=== PATIENT | female | born 1965 | race Caucasian/White ===

== ENCOUNTER 2019-08-22 19:12 | Emergency (ER) | payer MEDICAID, OTHER ==
[2019-08-22 21:57] VITALS: BP 158/92
[2019-08-22] MEDS ORDERED: KETOROLAC TROMETH 60MG/2ML VIAL IM ONE (22:45)
== END 2019-08-22 23:48 | disposition home or self-care (01) ==
LOC: ER 19:12
DX: M54.6 Pain in thoracic spine (principal); W11.XXXA Fall on and from ladder, initial encounter; Y93.89 Activity, other specified; Y92.89 Other specified places as the place of occurrence of the external cause; Y99.8 Other external cause status
CPT/HCPCS: 72128; 96372; 99284; J1885

== ENCOUNTER 2019-11-22 13:23 | Emergency (ER) | payer MEDICAID ==
[~2019-11-22] VITALS: Ht 165.1 cm; Wt 83.9 kg
[2019-11-22 13:32] VITALS: BP 168/92
== END 2019-11-22 15:06 | disposition home or self-care (01) ==
LOC: ER 13:23
DX: G44.209 Tension-type headache, unspecified, not intractable (principal); R41.82 Altered mental status, unspecified; J45.909 Unspecified asthma, uncomplicated; I10 Essential (primary) hypertension
CPT/HCPCS: 70450

== ENCOUNTER 2020-02-13 14:02 | Emergency (ER) | payer MEDICAID ==
[~2020-02-13] VITALS: Ht 165.1 cm; Wt 73.5 kg
[2020-02-13 15:13] VITALS: BP 167/94
== END 2020-02-13 16:25 | disposition home or self-care (01) ==
LOC: ER 14:02
DX: R07.81 Pleurodynia (principal); I10 Essential (primary) hypertension; J45.909 Unspecified asthma, uncomplicated; F32.9 Major depressive disorder, single episode, unspecified
CPT/HCPCS: 71046

== ENCOUNTER 2023-01-30 19:29 | Emergency (ER) | payer MEDICAID ==
[~2023-01-30] VITALS: Ht 162.6 cm; Wt 90.9 kg
[~2023-01-30 19:29] MED LIST: ACET-1079 PO; ACET500T58 PO; BACDST PO; CEPH500T PO; LISI10TA34 PO; ZOFR4T PO
[2023-01-30 20:24] LABS: Basophils # (auto) 0 10 ^3/uL (0-0.2); Basophils % (auto) 0.9 % (0.0-2.0); Eosinophils # (auto) 0.1 10 ^3/uL (0-0.8); Eosinophils % (auto) 1.7 % (0.0-7.0); Hematocrit 40.3 % (36.0-46.0); Hemoglobin 13.3 g/dL (12.2-16.2); Lymphocytes # (auto) 2.4 10 ^3/uL (0.4-5.4); Lymphocytes % (auto) 43.1 % (10.0-50.0); Mean Corpuscular Hemoglobin 28.8 pg (28.0-32.0); Mean Corpuscular Volume 87.4 fL (80.0-100.0); Monocytes # (auto) 0.5 10 ^3/uL (0-1.3); Monocytes % (auto) 8.4 % (0.0-12.0); Neutrophils # (auto) 2.6 10 ^3/uL (1.6-8.6); Neutrophils % (auto) 45.9 % (37.0-80.0); Nucleated Red Blood Cells % 0.1 %; Red Blood Cells 4.61 10^6/uL (4.0-5.20); Red Cell Distribution Width 16.3 % (11.8-14.3); White Blood Cell 5.6 10^3/uL (4.4-10.8)
[2023-01-30 20:30] LABS: Albumin 3.9 g/dL (3.4-5.0); Calcium 9.3 mg/dL (8.5-10.1); Magnesium 2.6 mg/dL (1.6-2.6)
[2023-01-30 20:34] LABS: BUN/Creatinine Ratio 11.7 (10.0-20.0); Bilirubin, Total 0.2 mg/dL (0.2-1.0); Total Protein 7.3 g/dL (6.4-8.2)
[2023-01-30] MEDS ORDERED: ONDANSETRON ODT 4 MG TAB PO ONE (20:45)
[2023-01-30] MEDS ORDERED: HYDROcodone-ACET 10/325MG TAB PO ONE (20:45)
[2023-01-30 23:11] LABS: Urine Bacteria MOD /hpf (None Seen); Urine Mucus FEW (None Seen); Urine WBC 3 /hpf (0 - 5)
[2023-01-30 23:12] LABS: Urine Clarity CLEAR (Clear); Urine Color Yellow (Yellow)
[2023-01-30 23:13] LABS: Urine Blood TRACE /uL (Negative); Urine Protein, UAD TRACE (Negative); Urine Urobilinogen Normal (Negative)
[2023-01-30] MEDS ORDERED: IBUP-1455 PO (23:48)
[2023-01-30] MEDS ORDERED: HYDR-4902 PO (23:48)
[2023-01-30] MEDS ORDERED: ZOFR4T PO (23:48)
[2023-01-31 00:20] VITALS: BP 151/87; PULSE 77; RESP 20; TEMP 98.1; O2SAT 96
== END 2023-01-31 00:22 | disposition home or self-care (01) ==
LOC: EDBD 19:29 → ER 19:29
DX: K82.0 Obstruction of gallbladder (principal); J45.909 Unspecified asthma, uncomplicated; I10 Essential (primary) hypertension; E66.01 Morbid (severe) obesity due to excess calories; Z68.34 Body mass index [BMI] 34.0-34.9, adult
CPT/HCPCS: 36415; 74176; 80053; 81001; 83690; 83735; 85025; 93005; 99284; Q0162

== ENCOUNTER 2024-11-02 16:52 | Emergency (ER) | payer MEDICAID ==
[~2024-11-02] VITALS: Ht 170.2 cm; Wt 104.5 kg
[~2024-11-02 16:52] MED LIST changes: +HYDR-4902 PO; +IBUP-1455 PO
--- NOTE | 2024-11-02 17:58 | ED.PDOC ---
History of Present Illness HPI Comments This patient is a 58-year-old morbidly obese female who arrives the ED today via EMS for evaluation of right knee pain concerns status post ground level fall stepping out of a shower proximally 1/2 hour prior to arrival. Patient states she slipped something in the shower and landed directly on the right knee. Patient states she is unable to ambulate. Patient arrives with a box knee splint having received fentanyl in route. Patient was comfortable at time of evaluation. Patient denies any head trauma or blood loss. Chief Complaint: Lower Extremity Time Seen by MD: 17:35 Primary Care Provider: MEKA Reviewed Notes: Nurses Notes, Acetone Button Paster Notes, Medications, Allergies Allergies: Coded Allergies: NO KNOWN ALLERGIES (Unverified , 11/22/19) Home Meds Active Scripts Ondansetron Odt 4MG Tab (ZOFRAN PO) 4 Mg Tb, 4 MG PO Q6HP PRN, #20 TAB ODT TAB-DISSOLVE IN MOUTH, THEN SWALLOW Prov:LEVY HENDRIX PAC 01/30/23 Hydrocodone-Acetaminophen (Hydrocodone Bitartrate/AC 5-325 mg) 1 Tab Tab, 1 TAB PO Q6HP PRN, #20 TAB Prov:LEVY HENDRIX PAC 01/30/23 Ibuprofen Micronized (Ibuprofen) 800 Mg Tab, 800 MG PO Q8HP PRN, #20 TAB Prov:LEVY HENDRIX PAC 01/30/23 Lisinopril (Lisinopril) 10 Mg Tab, 10 MG PO DAILY, #30 TAB Prov:LEVY HENDRIX PAC 01/09/23 Sulfamethoxazole W/Trimethopri (Bactrim Ds Tablet) 1 Tab Tb, 1 TAB PO BID for 7 Days, #14 TAB Prov:LEVY HENDRIX PAC 01/09/23 Ondansetron Odt 4MG Tab (ZOFRAN PO) 4 Mg Tb, 4 MG PO Q6HP PRN, #20 TAB ODT TAB-DISSOLVE IN MOUTH, THEN SWALLOW Prov:LEVY HENDRIX PAC 01/09/23 Acetaminophen (Acetaminophen) 500 Mg Tab, 500 MG PO Q4HP PRN, #30 TAB Prov:LEVY HENDRIX PAC 01/09/23 Acetaminophen (Tylenol) 325 Mg Tb, 325 MG PO Q4HPRN PRN, #30 TAB 0 Refills Take 1-2 caps po q4h prn for pain/fever (Do not exceed 3,000mg of acetaminophen in 24 hours) Prov:RENETTA CHIANG [facility] 01/06/23 Cephalexin Monohydrate (Cephalexin) 500 Mg Tab, 1 TAB PO QID for 7 Days, #28 TAB 0 Refills Prov:RENETTA CHIANG [facility] 01/06/23 Information Source: Patient, Emergency Med Personnel Mode of Arrival: EMS Severity: Moderate Timing: Minutes Duration: Since onset, Minutes Prehospital treatment: None Past Medical History PAST MEDICAL HISTORY: Anxiety, Asthma, Depression, HTN Surgical History: Tonsillectomy GLOBAL CATEGORY MANAGER History: No Pertinent GLOBAL CATEGORY MANAGER History Family History Family History: Reviewed,noncontributory to illness, Unknown Social History Smoker: Non-Smoker Alcohol: Denies ETOH Use Drugs: Denies Drug Use Lives In: Home Constitutional: reports: others (Right knee deformity/pain); denies: chills, diaphoresis, fatigue, fever, malaise, sweats, weakness EENTM: denies: blurred vision, double vision, ear bleeding, ear discharge, ear drainage, ear pain, ear ringing, eye pain, eye redness, hearing loss, mouth pain, mouth swelling, nasal discharge, nose bleeding, nose congestion, nose pain, photophobia, tearing, throat pain, throat swelling, voice changes, others Respiratory: denies: cough, hemoptysis, orthopnea, SOB at rest, shortness of breath, SOB with excertion, stridor, wheezing, others Cardiovascular: denies: chest pain, dizzy spells, diaphoresis, Dyspnea on exertion, edema, irregular heart beat, left arm pain, lightheadedness, palpitations, PND, syncope, others Gastrointestinal: denies: abdomen distended, abdominal pain, blood streaked bowels, constipated, diarrhea, dysphagia, difficulty swallowing, hematemesis, melena, nausea, poor appetite, poor fluid intake, rectal bleeding, rectal pain, vomiting, others Genitourinary: denies: abnormal vagina bleeding, burning, dyspareunia, dysuria, flank pain, frequency, hematuria, incontinence, pain, , vagina discharge, urgency, others Neurological: denies: dizziness, fainting, headache, left sided numbness, left sided weakness, numbness, paresthesia, pre-existing deficit, right sided numbness, right sided weakness, seizure, speech problems, tingling, tremors, weakness, others Musculoskeletal: reports: others (Right knee pain); denies: back pain, gout, joint pain, joint swelling, muscle pain, muscle stiffness, neck pain Integumetry: denies: bruises, change in color, change in hair/nails, dryness, laceration, lesions, lumps, rash, wounds, others Endocrine: denies: excessive hunger, excessive sweating, excessive thirst, excessive urination, flushing, intolerance to cold, intolerance to heat, unexplained weight gain, unexplained weight loss, others Psychiatric: denies: anxiety, bipolar disorder, depression, hopeless, panic disorder, schizophrenia, sleepless, suicidal, others All Other Systems: Reviewed and Negative Physical Exam General Appearance: Moderate Distress ( [id number] distress due to right knee pain concerns.), Obese HEENT: Normal ENT Inspection, Pharynx Normal, TMs Normal Neck: Full Range of Motion, Non-Tender, Normal, Normal Inspection Respiratory: Chest Non-Tender, Lungs Clear, No Accessory Muscle Use, No Respiratory Distress, Normal Breath Sounds Cardiovascular: No Edema, No JVD, No Murmur, No Gallop, Normal Peripheral Pulses, Regular Rate/Rhythm Breast Exam: Deferred Gastrointestinal: No Organomegaly, Non Tender, No Pulsatile Mass, Normal Bowel Sounds, Soft Genitalia: Deferred Pelvic: Deferred Rectal: Deferred Extremities: Other ( Patient was in a knee brace at time of evaluation. Pat ient displays multiple patches of the abrasions with localized edema. No ecchymosis appreciated. No erythema. Tender to palpation throughout anterior aspect. Distal neurovascular intact.) Musculoskeletal : Apperance: Normal Neurologic: Alert, No Motor Deficits, Normal Affect, Normal Mood, No Sensory Deficits Cerebellar Function: Normal Reflexes: Normal Skin: Dry, Normal Color, Warm Lymphatic: No Adenopathy Was a procedure done? Was a procedure done?: No Differential Dx Considerations may include: Knee fracture, knee contusion, fall X-Ray, Labs, Meds, VS Vital Signs Date Time Temp Pulse Resp B/P (MAP) Pulse Ox O2 Delivery O2 Flow Rate FiO2 11/02/24 18:08 101 20 95 Room Air* 0 21 11/02/24 18:08 98.4 101 20 150/87 (108) 95 98.4 11/02/24 17:00 98.3 108 12 126/76 (93) 98 98.3 Current Medications Medications (Trade) Dose Ordered Sig/Obdulia Route Start Time Stop Time Status Last Admin Acetaminophen/ Hydrocodone Bitart ([place] 10/325MG Tab) 1 tab ONCE ONCE PO 11/02/24 18:15 11/02/24 18:16 DC 11/02/24 18:18 X-Ray, Labs, Meds, VS Comment All studies performed the ED were evaluated by me personally. x-rays studies confirmed avulsion fracture of the distal right patella. No joint space narrowing was noted. Patient will be provided with a knee immobilizer and crutches at discharge. Advised patient utilize pain medication as needed, and follow up with the primary care provider in five days for re-evaluation. If the patient can not follow up with the primary care, contact this facility and talk to our orthopedic group. Time of 1ST Reevaluation: 18:36 Reevaluation 1ST: Improved Consultation: PCP, Other ( Orthopedist) Patient Education/Counseling: Diagnosis, Treatment, Prognosis Family Education/Counseling: Diagnosis, Treatment, No Family Present Departure 1 Departure Time of Disposition: 18:37 Impression: Primary Impression: Patellar sleeve fracture of right knee Disposition: HOME / SELF CARE / HOMELESS Condition: Stable Additional Instructions: Advised patient utilize pain medication as needed. Patient should contact her primary care provider in approximately five days for re-evaluation discussions related to long-term management. If the patient can not reach her primary care, she should contact this facility at [phone] ask for our orthopedic group that is managed by Dr. Perez for evaluation of her wound/fracture. e-Prescriptions Hydrocodone-Acetaminophen (Hydrocodone Bitartrate/AC 10-325 mg) 1 Tab Tab 1 TAB PO Q8HP PRN, #20 TAB Prov: LEVY HENDRIX PAC 11/02/24 Ibuprofen Micronized (Ibuprofen) 800 Mg Tab 800 MG PO Q8HP PRN, #20 TAB Prov: LEVY HENDRIX PAC 11/02/24 Discharged With: Self, Friend Critical Care Note Critical Care Time?: No Stability Stability form required: No Heart Score Heart Score: Heart Score Response (Comments) Value History N/A 0 EKG N/A 0 Age N/A 0 Risk Factors N/A 0 Troponin N/A 0 Total 0 I personally scribed for LEVY HENDRIX ([email or web address]) on 11/02/24 at 17:58. Electronically submitted by Star Valadez ([email or web address]). LEVY HENDRIX PAC November 02, 2024 17:58
[2024-11-02 18:08] VITALS: PULSE 101; RESP 20; O2SAT 95
--- NOTE | 2024-11-02 18:13 | DVH ---
EXAM: XY R KNEE 3V XRAY HISTORY: Fall /trauma COMPARISON: None TECHNIQUE: 3 views of the right knee were performed. FINDINGS: Avulsion fracture of the distal right patella.. No significant joint space narrowing. No evidence o f significant joint effusion. IMPRESSION: 1. Avulsion Fracture of the distal right patella with diastasis
[2024-11-02] MEDS: HYDROcodone-ACET 10/325MG TAB PO ONE (18:18)
[2024-11-02] MEDS ORDERED: HYDR-4798 PO (18:39)
[2024-11-02 19:30] VITALS: BP 107/90; PULSE 106; RESP 14; TEMP 98.6; O2SAT 99
== END 2024-11-02 20:40 | disposition home or self-care (01) ==
LOC: EDBD 16:52 → ER 16:57
DX: S82.091A Other fracture of right patella, initial encounter for closed fracture (principal); I10 Essential (primary) hypertension; F32.A Depression, unspecified; F41.9 Anxiety disorder, unspecified; J45.909 Unspecified asthma, uncomplicated; E66.01 Morbid (severe) obesity due to excess calories; Z68.36 Body mass index [BMI] 36.0-36.9, adult; Z79.899 Other long term (current) drug therapy; Z90.89 Acquired absence of other organs; W18.2XXA Fall in (into) shower or empty bathtub, initial encounter; Y93.89 Activity, other specified; Y92.098 Other place in other non-institutional residence as the place of occurrence of the external cause; Y99.8 Other external cause status
CPT/HCPCS: 29505; 73562

== ENCOUNTER 2024-11-22 06:05 | Inpatient (IN) | payer MEDICAID, OTHER ==
[~2024-11-22] VITALS: Ht 165.1 cm; Wt 102.0 kg
[~2024-11-22 06:05] MED LIST changes: +AML5T GT; +ATOR20TA50 PO; -BACDST PO; +BUPR-133 PO; -CEPH500T PO; +CHOL20007 OR; +HYDR-4798 PO; +LAMO200T34 PO; -LISI10TA34 PO; +LORA-622 PO; +LOSA-533 PO; +MONT-8 OR; +QUET300T14 PO; -ZOFR4T PO
[2024-11-22] MEDS: ceFAZolin 2 GM/D5W50ml 50 ML IV ONE (06:37)
[2024-11-22] MEDS: ROPIVACAINE 0.5% (5MG/ML) 20ML AMPULE IJ ONE (07:01)
[2024-11-22] MEDS ORDERED: HYDROmorphone HCL 2 MG/ML VL/or syr ONE (07:06)
[2024-11-22] MEDS ORDERED: MIDAZOLAM HCL 2MG/2ML 2ml VIAL (1mg/ml) ONE (07:06)
[2024-11-22] MEDS ORDERED: fentaNYL CITRATE 100 MCG/2 ML VL ONE (07:06)
[2024-11-22] MEDS ORDERED: ONDANSETRON HCL 4 MG/2 ML VIAL ONE (07:07)
[2024-11-22] MEDS: BUPIVACAINE 0.25% INJ 50ML VIAL ONE (07:07)
[2024-11-22] MEDS ORDERED: DexAMETHasone SOD PHOS 10MG/1ML VIAL INJ ONE (07:07)
[2024-11-22] MEDS ORDERED: LIDOCAINE 2% (LOCAL ANESTH.) PF 5ml SDV ONE (07:07)
[2024-11-22] MEDS ORDERED: KETOROLAC TROMETH 30 MG/ML 1ML VIAL ONE (07:07)
[2024-11-22] MEDS ORDERED: ePHEDrine SULFATE 50 MG/ML AMP ONE (07:07)
[2024-11-22] MEDS ORDERED: KETAMINE 50mg/ML 1ml syringe ONE (07:08)
[2024-11-22] MEDS ORDERED: GLYCOPYRROLATE 0.2 MG/ML 1ML VIAL ONE (07:08)
[2024-11-22] MEDS ORDERED: PROPOFOL 10 MG/ML 20 ML IV ONE (07:08)
[2024-11-22] MEDS ORDERED: CEPH500C PO (07:10)
[2024-11-22] MEDS ORDERED: HYDR-4072 PO (07:10)
--- NOTE | 2024-11-22 07:41 | DVHHP2 ---
History Allergies: Coded Allergies: NO KNOWN ALLERGIES (Unverified , 11/22/19) Chief Complaint: Right knee pain, inabilty to extend leg Present Illness(Onset/Duration Mechanical fall in bathroom yesterday, 11/21/24, hyperflextion of RIGHT leg, no hitting head, no altered mental status before or after fall. Inability to bear weight RIGHT LE after fall, with inability to extend right leg. Past Surgical History tonsillectomy, cholecystectomy Medications none declared Physical Exam Skin intact Chest and Lungs CTA B Heart RRR neg MRG Abdomen NBS ND NT Extremities Right Knee moderate swelling NVI skin intact, palpable defect inferior patella, inabilty to extend leg through knee Vital Signs Vital Signs Date Time Temp Pulse Resp B/P (MAP) Pulse Ox O2 Delivery O2 Flow Rate FiO2 11/22/24 06:23 97.3 90 20 131/87 (102) 94 97.3 Other imaging 11/21/24 right knee 2V, patella fracture, inferior pole, displaced, minimal articular surface Impressions/Description Right knee, patellar fracture, displaced, inferior pole patella Plan surgery ORIF patella fracture JENNA PATRICIA MD Nov 22, 2024 07:41
[2024-11-22 08:35] VITALS: O2SAT 92
--- NOTE | 2024-11-22 08:39 | DVHOP2 ---
Operative Report - 2 Report Details Date: 11/22/24 Preop Diagnosis: RIGHT patella inferior pole avulsion fracture Postop Diagnosis: same Surgeon: Rafael Pineda MD Water Taxi Operator: Bautista Young Anesthesiologist: Dr Roth Anesthesia: General Drains: none Implant: none Consent: The patient was informed of the risks and benefits of the procedure. These include but are not limited to complications of anesthesia, postoperative infection, incomplete relief of symptoms, recurrence of symptoms, damage to blood vessels, nerves and tendons, deep venous thrombosis, pulmonary embolism and possible need for repeat surgery in the future. Complications: none Estimated Blood Loss: 20 cc Fluids: 500 cc crystalloid Findings: above, avulstion of patellar tendon with 1 cm non articular piece, inferior patella Indications for Surgery: retracted avulsion of patellar tendon with inability to extend leg Name of Procedure Performed ORIF avulsion fracture of RIGHT inferior patella Procedure Details Procedure Details: Patient brought to the operating room given Ancef 1 g IV piggyback preoperatively sterile prep and drape left thigh no tourniquet needed for procedure longitudinal incision made over patella sharp dissection through skin down to deep fascia curettage performed of avulsions surface of the inferior pole of patella two seven drill used to create two longitudinal holes in the patella a stick suture Passer then placed through to pull Mersilene tape through the suture holes Mersilene tape then passed through the patellar tendon in a locking Nicholas type suture then brought back to the 2nd suture hole in the patella the knee was then extended and suture tied resulting in reduction of the avulsed fragment C-arm fluoro taken showing good overall alignment of fragments and repair with a 2-0 Vicryl our repair of patellar retinaculum with 0 0 Vicryl suture and then subcutaneous 2-0 Vicryl suture then skin kaushik fluffs ABD knee immobilizer no drains specimens complications Specimen: none Condition Stable Disposition Still a Patient RAFAEL PINEDA MD Nov 22, 2024 08:39
[2024-11-22] MEDS: HYDROmorphone HCL 2 MG/ML VL/or syr IV PRN (08:44)
[2024-11-22] MEDS: HYDROmorphone HCL 2 MG/ML VL/or syr ONE (08:44)
[2024-11-22] MEDS: ONDANSETRON HCL 4 MG/2 ML VIAL IV ONE (08:45)
[2024-11-22] MEDS ORDERED: NITROGLYCERIN 0.4 MG SL TAB SL PRN (08:45)
[2024-11-22] MEDS: LORazepam 2MG/ML-1ML VIAL ONE (08:53)
[2024-11-22] MEDS: LORazepam 2MG/ML-1ML VIAL IV ONE (08:54)
[2024-11-22] MEDS: ACETAMINOPHEN IV 1000 MG/100ML (10MG/ML) IV ONE (08:57)
--- NOTE | 2024-11-22 09:02 | DVH ---
C-ARM FLUOROSCOPY: PROCEDURE: right patella orif FLUOROSCOPY TIME: 3 sec FINDINGS: Spot intraoperative C arm radiographs demonstrating right patella orif . IMPRESSION: Please refer to surgical report for detailed findings.
[2024-11-22] MEDS: D5W/SOD CHL 0.45%/KCL 20MEQ 1,000 ML IV SCH ×2 (09:59→16:21)
[2024-11-22] MEDS: oxyCODONE ER 10 MG TAB PO ONE (12:34)
[2024-11-22 13:23] VITALS: BP 114/79; PULSE 90; RESP 18; TEMP 97.8; O2SAT 98
[2024-11-22] MEDS ORDERED: ONDANSETRON HCL 4 MG/2 ML VIAL IV PRN (14:00)
--- NOTE | 2024-11-22 14:00 | DVHINCON2 ---
Date Seen: Nov 22, [address] PATRICIA Allergies: Coded Allergies: NO KNOWN ALLERGIES (Unverified , 11/22/19) Home Meds Active Scripts Cephalexin Monohydrate (Cephalexin) 500 Mg Cap, 1 CAP PO QID for 3 Days, #12 CAP Prov:VIOLETTA ECHEVERRIA PAC 11/22/24 Hydrocodone-Acetaminophen (Hydrocodone Bitartrate/AC 10-325 mg) 1 Tab Tab, 1 TAB PO Q8HP PRN, #20 TAB Prov:LEVY HENDRIX PAC 11/02/24 Hydrocodone-Acetaminophen (Hydrocodone Bitartrate/AC 5-325 mg) 1 Tab Tab, 1 TAB PO Q6HP PRN, #20 TAB Prov:LEVY HENDRIX PAC 01/30/23 Ibuprofen Micronized (Ibuprofen) 800 Mg Tab, 800 MG PO Q8HP PRN, #20 TAB Prov:LEVY HENDRIX PAC 01/30/23 Acetaminophen (Acetaminophen) 500 Mg Tab, 500 MG PO Q4HP PRN, #30 TAB Prov:LEVY HENDRIX PAC 01/09/23 Acetaminophen (Tylenol) 325 Mg Tb, 325 MG PO Q4HPRN PRN, #30 TAB 0 Refills Take 1-2 caps po q4h prn for pain/fever (Do not exceed 3,000mg of acetaminophen in 24 hours) Prov:RENETTA CHIANG [facility] 01/06/23 Reported Medications Loratadine (Claritin) 10 Mg Tab, 10 MG PO DAILY, TAB 11/20/24 Atorvastatin Calcium (ATORVASTATIN CALCIUM) 20 Mg Tab, 20 MG PO DAILY, TAB 11/20/24 Cholecalciferol (VITAMIN D3) 2,000 Unit Tab, 1250 MCG OR DAILY, TAB 11/20/24 Montelukast Sodium (MONTELUKAST SODIUM) 10 Mg Tab, 10 MG OR DAILY, TAB 11/20/24 Lamotrigine (Lamotrigine) 200 Mg Tab, 200 MG PO BID, TAB 11/20/24 Bupropion Hcl (Bupropion Hcl Er) 150 Mg Tab, 300 MG PO DAILY, TAB 11/20/24 Quetiapine Fumerate (Seroquel) 300 Mg Tab, 200 MG PO DAILY, TAB 11/20/24 Amlodipine Besylate (NORVASC TABLET) 5 Mg Tb, 5 MG GT DAILY, TAB 11/20/24 Losartan Potassium (Losartan Potassium) 25 Mg Tab, 12.5 MG PO DAILY, TAB 11/20/24 Current Medications Current Medications Medications (Trade) Dose Ordered Sig/Obdulia Route PRN Reason Start Time Stop Time Status Last Admin Hydromorphone HCl (Dilaudid Injection) 0.5 mg Q10M PRN IV SEVERE PAIN (7-10 PAIN SCALE) 11/22/24 08:45 11/22/24 09:26 DC 11/22/24 08:44 Potassium Chloride/Dextrose/ Sod Cl 1,000 ml @ 150 mls/hr Q6H40M IV 11/22/24 08:45 11/22/24 09:59 Nitroglycerin (Ntrostat Sublingual) 0.4 mg Q5MINP PRN SL FOR CHEST PAIN 11/22/24 08:45 Vital Signs Vital Signs Date Time Temp Pulse Resp B/P (MAP) Pulse Ox O2 Delivery O2 Flow Rate FiO2 11/22/24 13:23 97.8 90 18 114/79 (91) 98 97.8 11/22/24 10:28 Nasal Cannula 3.0 98 Assessment SEE DICTATED NOTE Plan discussed with: Patient Date of Service: Nov 22, 2024 Billing Provider: ALMA DELIA BETTENCOURT MD Common Visit Codes: [id number] INP/OBS CARE (HIGH) Secondary Visit Codes: [id number] CARE PLAN 30 MINUTES ALMA DELIA BETTENCOURT MD Nov 22, 2024 14:00
[2024-11-22] MEDS: MORPHINE SULFATE 4 MG/ML SYR/VIAL IV PRN (16:24)
[2024-11-22 16:30] VITALS: BP 121/78; PULSE 101; RESP 20; TEMP 97.7; O2SAT 95
[2024-11-22] MEDS: buPROPion HCL 75 MG TAB PO SCH (18:20)
--- NOTE | 2024-11-22 19:50 | DVHINCON2 ---
DATE OF CONSULTATION: 11/22/2024 INTERNAL MEDICINE CONSULT HISTORY OF PRESENT ILLNESS: The patient is a 58-year-old lady who underwent surgery on the right knee for right patellar fracture status post fall. The patient at this time denies any significant pain. No chest pain, no shortness of breath, no nausea or vomiting. REVIEW OF SYSTEMS: Review of rest of systems are otherwise currently negative. PAST MEDICAL HISTORY: Significant for hypertension as well as hyperlipidemia, anxiety, and questionable bipolar disorder. MEDICATIONS: Losartan, amlodipine, Seroquel, bupropion, Lamictal, atorvastatin, and [place]. ALLERGIES: No known drug allergies. SOCIAL HISTORY: Denies smoking or alcohol. Lives with her fiance. FAMILY HISTORY: Negative. PHYSICAL EXAMINATION: GENERAL: The patient is awake and alert. VITAL SIGNS: Temperature 97.8, pulse 100 per minute, blood pressure 119/68. SHEENT: Unremarkable. NECK: There is no JVD. No pedal edema. LUNGS: Equal bilaterally. No added sounds. CARDIOVASCULAR SYSTEM: S1 and S2 is regular, no murmurs. ABDOMEN: Soft. There is no organomegaly. NEUROLOGIC: Nonfocal. MUSCULOSKELETAL: The right knee is currently in a dressing. ASSESSMENT AND PLAN: * Hypertension for which the patient's blood pressure will be monitored. * Anxiety/bipolar disorder. The patient's home medication will be resumed. * Obesity. * Hyperlipidemia. * Right patellar fracture status post surgery for which she will be followed up by Dr. Garner. * Advance care planning, the patient is a full code-Time spent was 18 minutes. MD SHYLA Nation/ZAHIRA TID: [id number] RECEIPT: [id number] [facility]
[2024-11-22 21:00] VITALS: BP 150/85; PULSE 111; RESP 20; TEMP 98; O2SAT 96
[2024-11-22] MEDS: MONTELUKAST SODIUM 10 MG TAB PO SCH (22:07)
[2024-11-22] MEDS: QUEtiapine FUMARATE 100 MG TAB PO SCH (22:08)
[2024-11-22] MEDS: lamoTRIgine 100 MG TAB PO SCH (22:08)
[2024-11-22] MEDS: HYDROcodone-ACET 5/325MG TAB PO PRN (22:49)
[2024-11-23 01:00] VITALS: BP 126/75; PULSE 108; RESP 20; TEMP 98.3; O2SAT 95
[2024-11-23 05:00] VITALS: BP 112/74; PULSE 102; RESP 20; TEMP 97.5; O2SAT 97
[2024-11-23 06:17] LABS: Basophils # (auto) 0 10 ^3/uL (0-0.2); Basophils % (auto) 0.2 % (0.0-2.0); Eosinophils # (auto) 0 10 ^3/uL (0-0.8); Hematocrit 32.8 % (36.0-46.0); Hemoglobin 11.3 g/dL (12.2-16.2); Lymphocytes # (auto) 1.8 10 ^3/uL (0.4-5.4); Lymphocytes % (auto) 18.7 % (10.0-50.0); Mean Corpuscular Hemoglobin 31.1 pg (28.0-32.0); Mean Corpuscular Hgb Conc. 34.5 g/dL (32.0-36.0); Mean Corpuscular Volume 90.3 fL (80.0-100.0); Monocytes # (auto) 0.6 10 ^3/uL (0-1.3); Monocytes % (auto) 6.3 % (0.0-12.0); Neutrophils # (auto) 7.2 10 ^3/uL (1.6-8.6); Neutrophils % (auto) 74.8 % (37.0-80.0); Nucleated Red Blood Cells % 0.1 %; Platelet Count (auto) 311 10^3/uL (140-450); Red Blood Cells 3.63 10^6/uL (4.0-5.20); Red Cell Distribution Width 15.1 % (11.8-14.3); White Blood Cell 9.6 10^3/uL (4.4-10.8)
[2024-11-23 06:41] LABS: Alanine Aminotransferase 19 U/L (7-40); Alkaline Phosphatase 82 U/L (46-116); Anion Gap 9 (5-15); BUN/Creatinine Ratio 9.6 (10.0-20.0); Carbon Dioxide 27 mmol/L (20-31); Chloride 105 mmol/L (98-107); Sodium 141 mmol/L (136-145)
[2024-11-23 06:42] LABS: Albumin 4.4 g/dL (3.2-4.8)
[2024-11-23 06:43] LABS: Aspartate Aminotransferase 13 U/L (13-40)
[2024-11-23 06:46] LABS: Bilirubin, Total 0.2 mg/dL (0.2-1.0); Blood Urea Nitrogen 8 mg/dL (9-23); Glucose 126 mg/dL (74-106)
[2024-11-23 09:00] VITALS: BP 133/86; PULSE 91; RESP 14; TEMP 97.9; O2SAT 98
[2024-11-23 13:00] VITALS: BP 133/82; PULSE 85; RESP 18; TEMP 98.6; O2SAT 96
--- NOTE | 2024-11-23 13:46 | DVHPN2 ---
Progress Note Date Seen: Nov 23, 2024 Medical Necessity Reason Pt with a Central, PICC or Fol: No Subjective Patient reports: No new complaints Review of Systems: HEENT:Normal, CVS:Normal, RESPIRATORY:Normal, GI:Normal, :Normal, MSK:Normal, NEURO:Normal Objective vital signs Vital Sign Date Time Temp Pulse Resp B/P (MAP) Pulse Ox O2 Delivery O2 Flow Rate FiO2 11/23/24 13:00 98.6 85 18 133/82 (99) 96 98.6 11/23/24 07:45 Nasal Cannula* 3 32 Total Intake and Output 11/22/24 11/22/24 11/23/24 15:00 23:00 07:00 Intake Total 0 ml 800 ml Output Total 0 ml Balance 0 ml 800 ml medications Current Medications Medications Dose Ordered Sig/Obdulia Route Start Time Stop Time Status Last Admin Dose Admin Nitroglycerin 0.4 mg Q5MINP PRN SL 11/22/24 08:45 Potassium Chloride/Dextrose/ Sod Cl 1,000 ml @ 100 mls/hr Q10H IV 11/22/24 14:00 11/23/24 10:28 100 MLS/HR Bupropion HCl 150 mg BID@07,19 PO 11/22/24 19:00 11/23/24 06:15 150 MG Lamotrigine 200 mg Q12HR PO 11/22/24 22:00 11/23/24 10:19 200 MG Montelukast Sodium 10 mg HS PO 11/22/24 22:00 11/22/24 22:07 10 MG Quetiapine Fumarate 200 mg HS PO 11/22/24 22:00 11/22/24 22:08 200 MG Morphine Sulfate 2 mg Q4HPRN PRN IV 11/22/24 14:45 11/23/24 10:18 2 MG Acetaminophen/ Hydrocodone Bitart 2 tab Q6HPRN PRN PO 11/22/24 14:00 11/23/24 12:48 2 TAB Acetaminophen 650 mg Q6HP PRN PO 11/22/24 14:00 Ondansetron HCl 4 mg Q6HPRN PRN IV 11/22/24 14:00 Examination: GENERAL:Normal, HEENT:Normal, NECK:Normal, LUNGS:Normal, CVS:Normal, ABDOMEN:Normal, MSK:Normal, MSK:Abnormal (RIGHT KNEE BRACE/DRESSING), SKIN:Normal, NEURO:Normal, :Normal laboratory and microbiology Laboratory Tests 11/23/24 05:13 Test 11/23/24 05:13 Range/Units Serum Glucose 126 H 74-106 mg/dL Problem List/Assessment/Plan Problem List/Assessment/Plan * Hypertension for which the patient's blood pressure will be monitored. * Anxiety/bipolar disorder. The patient's home medication will be resumed. * Obesity. * Hyperlipidemia. * Right patellar fracture status post surgery for which she will be followed up by Dr. Garner. * Advance care planning, the patient is a full code- time spent 18 mins Plan discussed with: Patient My Orders My Orders Orders - ALMA DELIA BETTENCOURT MD Procedure Category Date Status Time D5w/Sod Chl 0.45%/Kcl PHA 11/22/24 In Process 20meq 14:00 Bupropion Tablet PHA 11/22/24 In Process (Wellbutrin Tablet) 19:00 Lamotrigine Tablet PHA 11/22/24 In Process (Lamictal Tablet) 22:00 Montelukast Tablet PHA 11/22/24 In Process (Singulair Tablet) 22:00 Quetiapine Fumarate PHA 11/22/24 In Process Tablet (Seroquel Tab 22:00 Hydrocodone-Acet PHA 11/22/24 In Process 5/325mg Tab ([place] 14:00 Acetaminophen Tablet PHA 11/22/24 In Process (Tylenol Tablet) 14:00 Ondansetron Hcl PHA 11/22/24 In Process (Zofran) 14:00 Morphine Sulfate PHA 11/22/24 In Process Injection 14:45 Urinalysis LAB 11/23/24 Uncollected 13:41 Date of Service: Nov 23, 2024 Billing Provider: ALMA DELIA BETTENCOURT MD Common Visit Codes: [id number] INP/OBS CARE(HIGH) Secondary Visit Codes: [id number] CARE PLAN 30 MINUTES ALMA DELIA BETTENCOURT MD Nov 23, 2024 13:46
[2024-11-23 16:43] LABS: Urine Bacteria None Seen /hpf (None Seen)
[2024-11-23 16:48] LABS: Urine Blood Negative /uL (Negative); Urine Clarity Clear (Clear); Urine Color Colorless (Yellow); Urine Protein, UAD Negative (Negative); Urine Specific Gravity 1.005 (1.001-1.035); Urine Squamous Epithelial Cell FEW /hpf (<5); Urine Urobilinogen Normal (Negative); Urine WBC < 1 /HPF (0-5)
[2024-11-23 17:00] VITALS: BP 134/87; PULSE 87; RESP 20; TEMP 98.3; O2SAT 97
[2024-11-23 21:00] VITALS: BP 143/72; PULSE 76; RESP 18; TEMP 98.3; O2SAT 95
[2024-11-24] VITALS (7 sets, daily range): BP systolic 122–139; BP diastolic 66–97; PULSE 83–105; RESP 18–20; TEMP 96.7–98.3; O2SAT 92–97
--- NOTE | 2024-11-24 09:46 | DVHPN2 ---
Subjective bp within goal, pending ortho clearance Changes from previous H/P or p: No Changes Objective Vitals Vital Signs Date Time Temp Pulse Resp B/P (MAP) Pulse Ox O2 Delivery O2 Flow Rate FiO2 11/24/24 06:44 83 19 122/81 11/24/24 05:00 96.7 94 96.7 11/23/24 20:00 Nasal Cannula* 3 32 Intake/Output Intake and Output 11/24/24 07:00 Intake Total 1880 ml Output Total 600 ml Balance 1280 ml Intake Oral 1880 ml Output Urine Total 300 ml Stool Total 300 ml # Voids 10 Medications Current Medications Medications Dose Ordered Sig/Obdulia Route Start Time Stop Time Status Last Admin Dose Admin Nitroglycerin 0.4 mg Q5MINP PRN SL 11/22/24 08:45 Bupropion HCl 150 mg BID@07,19 PO 11/22/24 19:00 11/24/24 06:43 150 MG Lamotrigine 200 mg Q12HR PO 11/22/24 22:00 11/24/24 09:36 200 MG Montelukast Sodium 10 mg HS PO 11/22/24 22:00 11/23/24 22:11 10 MG Quetiapine Fumarate 200 mg HS PO 11/22/24 22:00 11/23/24 22:11 200 MG Morphine Sulfate 2 mg Q4HPRN PRN IV 11/22/24 14:45 11/24/24 06:44 2 MG Acetaminophen/ Hydrocodone Bitart 2 tab Q6HPRN PRN PO 11/22/24 14:00 11/24/24 09:37 2 TAB Acetaminophen 650 mg Q6HP PRN PO 11/22/24 14:00 Ondansetron HCl 4 mg Q6HPRN PRN IV 11/22/24 14:00 Laboratory Results Laboratory Tests 11/23/24 05:13 Urinalysis Test 11/23/24 16:13 Urine Color Colorless (Yellow) Urine Clarity Clear (Clear) Urine pH 6.0 (5.0-9.0) Urine Specific [place] 1.005 (1.001-1.035) Urine Protein Negative (Negative) Urine Ketones Negative (Negative) Urine Blood Negative /uL (Negative) Urine Nitrite Negative (Negative) Urine Bilirubin Negative (Negative) Urine Urobilinogen Normal mg/dL (Negative) Urine Leukocyte Esterase Negative /uL (Negative) Urine RBC None seen /hpf (0 - 4) Urine Microscopic WBC < 1 /HPF (0-5) Urine Squamous Epithelial Cells Few /hpf (<5) Urine Bacteria None seen /hpf (None Seen) Urine Glucose Normal mg/dL (Normal) Assessment/Plan Assessment/Plan * Hypertension for which the patient's blood pressure will be monitored. * Anxiety/bipolar disorder. The patient's home medication will be resumed. * Obesity. * Hyperlipidemia. * Right patellar fracture status post surgery for which she will be followed up by Dr. Garner. * Advance care planning, the patient is a full code- time spent 18 mins Plan discussed with: Patient Date of Service: Nov 24, 2024 Billing Provider: BISI CARR MD Common Visit Codes: [id number] INP/OBS CARE(MOD) BISI CARR MD Nov 24, 2024 09:46
[2024-11-24] MEDS: ACETAMINOPHEN 325 MG TAB PO PRN (22:15)
[2024-11-25] VITALS (8 sets, daily range): BP systolic 103–160; BP diastolic 75–89; PULSE 80–97; RESP 18–20; TEMP 96–98.2; O2SAT 93–97
[2024-11-25 06:16] LABS: Basophils # (auto) 0 10 ^3/uL (0-0.2); Basophils % (auto) 0.4 % (0.0-2.0); Eosinophils # (auto) 0.2 10 ^3/uL (0-0.8); Eosinophils % (auto) 4.4 % (0.0-7.0); Hematocrit 31.5 % (36.0-46.0); Hemoglobin 10.6 g/dL (12.2-16.2); Lymphocytes # (auto) 1.8 10 ^3/uL (0.4-5.4); Lymphocytes % (auto) 46.8 % (10.0-50.0); Mean Corpuscular Hemoglobin 30.5 pg (28.0-32.0); Mean Corpuscular Hgb Conc. 33.5 g/dL (32.0-36.0); Mean Corpuscular Volume 90.9 fL (80.0-100.0); Monocytes # (auto) 0.3 10 ^3/uL (0-1.3); Monocytes % (auto) 8.8 % (0.0-12.0); Neutrophils # (auto) 1.6 10 ^3/uL (1.6-8.6); Neutrophils % (auto) 39.6 % (37.0-80.0); Nucleated Red Blood Cells % 0.2 %; Platelet Count (auto) 274 10^3/uL (140-450); Red Blood Cells 3.47 10^6/uL (4.0-5.20); White Blood Cell 3.9 10^3/uL (4.4-10.8)
[2024-11-25 06:26] LABS: Anion Gap 5 (5-15); Chloride 106 mmol/L (98-107); Potassium 4.3 mmol/L (3.5-5.1); Sodium 143 mmol/L (136-145)
[2024-11-25 06:32] LABS: BUN/Creatinine Ratio 14.4 (10.0-20.0); Blood Urea Nitrogen 13 mg/dL (9-23); Glucose 80 mg/dL (74-106)
[2024-11-25 06:33] LABS: Carbon Dioxide 32 mmol/L (20-31)
--- NOTE | 2024-11-25 14:09 | DVHPN2 ---
Reviewed: Care Plan, H&P, Labs, Medications, Previous Orders, Radiology Changes from previous H/P or p: No Changes Objective Vitals Vital Signs Date Time Temp Pulse Resp B/P (MAP) Pulse Ox O2 Delivery O2 Flow Rate FiO2 11/25/24 13:00 96.2 96 20 140/75 (96) 96 96.2 11/25/24 08:00 Room Air* 0 21 Intake/Output Intake and Output 11/25/24 07:00 Intake Total 1930 ml Output Total 1800 ml Balance 130 ml Intake Oral 1930 ml Output Urine Total 1800 ml # Voids 6 Medications Current Medications Medications Dose Ordered Sig/Obdulia Route Start Time Stop Time Status Last Admin Dose Admin Nitroglycerin 0.4 mg Q5MINP PRN SL 11/22/24 08:45 Bupropion HCl 150 mg BID@07,19 PO 11/22/24 19:00 11/25/24 06:34 150 MG Lamotrigine 200 mg Q12HR PO 11/22/24 22:00 11/25/24 09:48 200 MG Montelukast Sodium 10 mg HS PO 11/22/24 22:00 11/24/24 22:16 10 MG Quetiapine Fumarate 200 mg HS PO 11/22/24 22:00 11/24/24 22:16 200 MG Morphine Sulfate 2 mg Q4HPRN PRN IV 11/22/24 14:45 11/25/24 09:49 2 MG Acetaminophen/ Hydrocodone Bitart 2 tab Q6HPRN PRN PO 11/22/24 14:00 11/25/24 12:18 2 TAB Acetaminophen 650 mg Q6HP PRN PO 11/22/24 14:00 11/24/24 22:15 650 MG Ondansetron HCl 4 mg Q6HPRN PRN IV 11/22/24 14:00 Laboratory Results Laboratory Tests 11/25/24 05:25 Chemistry Test 11/25/24 05:25 Calcium Level 10.0 mg/dL (8.7-10.4) Urinalysis Test 11/23/24 16:13 Urine Color Colorless (Yellow) Urine Clarity Clear (Clear) Urine pH 6.0 (5.0-9.0) Urine Specific [place] 1.005 (1.001-1.035) Urine Protein Negative (Negative) Urine Ketones Negative (Negative) Urine Blood Negative /uL (Negative) Urine Nitrite Negative (Negative) Urine Bilirubin Negative (Negative) Urine Urobilinogen Normal mg/dL (Negative) Urine Leukocyte Esterase Negative /uL (Negative) Urine RBC None seen /hpf (0 - 4) Urine Microscopic WBC < 1 /HPF (0-5) Urine Squamous Epithelial Cells Few /hpf (<5) Urine Bacteria None seen /hpf (None Seen) Urine Glucose Normal mg/dL (Normal) Labs and/or images reviewed: Labs reviewed by me, Image(s) reviewed by me Assessment/Plan Assessment/Plan Covering for Dr. Fung Fracture right patella status post surgery' Dr Gar following Hypotension Anxiety Obesity Hypercholesterol Waiting for walker Plan discussed with: Patient Date of Service: Nov 25, 2024 Billing Provider: RINKU RILEY MD Common Visit Codes: [id number] INP/OBS CARE(HIGH) RINKU RILEY MD Nov 25, 2024 14:09
[2024-11-26] VITALS (7 sets, daily range): BP systolic 130–177; BP diastolic 78–97; PULSE 74–94; RESP 17–20; TEMP 97.6–98.4; O2SAT 93–96
--- NOTE | 2024-11-26 09:38 | DVHPN2 ---
Reviewed: Care Plan, H&P, Labs, Medications, Previous Orders, Radiology Changes from previous H/P or p: No Changes Objective Vitals Vital Signs Date Time Temp Pulse Resp B/P (MAP) Pulse Ox O2 Delivery O2 Flow Rate FiO2 11/26/24 08:00 74 18 96 Room Air* 0 21 11/26/24 05:00 97.8 130/78 (95) 97.8 Intake/Output Intake and Output 11/26/24 07:00 Intake Total 1080 ml Output Total 1475 ml Balance -395 ml Intake Oral 1080 ml Output Urine Total 1475 ml # Voids 5 Medications Current Medications Medications Dose Ordered Sig/Obdulia Route Start Time Stop Time Status Last Admin Dose Admin Nitroglycerin 0.4 mg Q5MINP PRN SL 11/22/24 08:45 Bupropion HCl 150 mg BID@07,19 PO 11/22/24 19:00 11/26/24 06:55 150 MG Lamotrigine 200 mg Q12HR PO 11/22/24 22:00 11/26/24 09:23 200 MG Montelukast Sodium 10 mg HS PO 11/22/24 22:00 11/25/24 21:41 10 MG Quetiapine Fumarate 200 mg HS PO 11/22/24 22:00 11/25/24 21:41 200 MG Morphine Sulfate 2 mg Q4HPRN PRN IV 11/22/24 14:45 11/25/24 16:32 2 MG Acetaminophen/ Hydrocodone Bitart 2 tab Q6HPRN PRN PO 11/22/24 14:00 11/26/24 09:23 2 TAB Acetaminophen 650 mg Q6HP PRN PO 11/22/24 14:00 11/25/24 21:55 650 MG Ondansetron HCl 4 mg Q6HPRN PRN IV 11/22/24 14:00 Laboratory Results Laboratory Tests 11/25/24 05:25 Urinalysis Test 11/23/24 16:13 Urine Color Colorless (Yellow) Urine Clarity Clear (Clear) Urine pH 6.0 (5.0-9.0) Urine Specific [place] 1.005 (1.001-1.035) Urine Protein Negative (Negative) Urine Ketones Negative (Negative) Urine Blood Negative /uL (Negative) Urine Nitrite Negative (Negative) Urine Bilirubin Negative (Negative) Urine Urobilinogen Normal mg/dL (Negative) Urine Leukocyte Esterase Negative /uL (Negative) Urine RBC None seen /hpf (0 - 4) Urine Microscopic WBC < 1 /HPF (0-5) Urine Squamous Epithelial Cells Few /hpf (<5) Urine Bacteria None seen /hpf (None Seen) Urine Glucose Normal mg/dL (Normal) Labs and/or images reviewed: Labs reviewed by me, Image(s) reviewed by me Assessment/Plan Assessment/Plan Covering for Dr. Fung Fracture right patella status post surgery' Dr Gar Hypotension Anxiety Obesity Hypercholesterolemia Waiting for walker Possible DC Wednesday Plan discussed with: Patient My Orders Orders - RINKU RILEY MD Procedure Category Date Status Time Dme: Walker DME 11/25/24 Transmitted 14:13 Date of Service: Nov 26, 2024 Billing Provider: RINKU RILEY MD Common Visit Codes: [id number] INP/OBS CARE(HIGH) RINKU RILEY MD Nov 26, 2024 09:38
[2024-11-26] MEDS: DOCUSATE SOD 100 MG CAP PO PRN (10:52)
[2024-11-26] MEDS: amLODIPine BESYLATE 5 MG TAB PO ONE (18:02)
[2024-11-27] VITALS (7 sets, daily range): BP systolic 123–154; BP diastolic 69–97; PULSE 65–96; RESP 16–19; TEMP 97.8–98.2; O2SAT 91–95
[2024-11-27] MEDS: amLODIPine BESYLATE 5 MG TAB PO SCH (09:08)
--- NOTE | 2024-11-27 14:43 | DVHDS2 ---
Discharge Summary Date of Admission Nov 22, 2024 at 08:39 Date of Discharge: Nov 27, 2024 Labs/Diagnostic Data: Laboratory Results Test 11/25/24 05:25 11/23/24 16:13 11/23/24 05:13 White Blood Count 3.9 10^3/uL (4.4-10.8) Red Blood Count 3.47 10^6/uL (4.0-5.20) Hemoglobin 10.6 g/dL (12.2-16.2) Hematocrit 31.5 % (36.0-46.0) Mean Corpuscular Volume 90.9 fL (80.0-100.0) Mean Corpuscular Hemoglobin 30.5 pg (28.0-32.0) Mean Corpuscular Hemoglobin Concent 33.5 g/dL (32.0-36.0) Red Cell Distribution Width 15.0 % (11.8-14.3) Platelet Count 274 10^3/uL (140-450) Mean Platelet Volume 6.1 fL (6.9-10.8) Neutrophils (%) (Auto) 39.6 % (37.0-80.0) Lymphocytes (%) (Auto) 46.8 % (10.0-50.0) Monocytes (%) (Auto) 8.8 % (0.0-12.0) Eosinophils (%) (Auto) 4.4 % (0.0-7.0) Basophils (%) (Auto) 0.4 % (0.0-2.0) Neutrophils # (Auto) 1.6 10 ^3/uL (1.6-8.6) Lymphocytes # (Auto) 1.8 10 ^3/uL (0.4-5.4) Monocytes # (Auto) 0.3 10 ^3/uL (0-1.3) Eosinophils # (Auto) 0.2 10 ^3/uL (0-0.8) Basophils # (Auto) 0 10 ^3/uL (0-0.2) Nucleated Red Blood Cells 0.2 % Sodium Level 143 mmol/L (136-145) Potassium Level 4.3 mmol/L (3.5-5.1) Chloride Level 106 mmol/L (98-107) Carbon Dioxide Level 32 mmol/L (20-31) Anion Gap 5 (5-15) Blood Urea Nitrogen 13 mg/dL (9-23) Creatinine 0.90 mg/dL (0.550-1.02) Glomerular Filtration Rate Calc 74 mL/min (>90) BUN/Creatinine Ratio 14.4 (10.0-20.0) Serum Glucose 80 mg/dL (74-106) Calcium Level 10.0 mg/dL (8.7-10.4) Urine Color Colorless (Yellow) Urine Clarity Clear (Clear) Urine pH 6.0 (5.0-9.0) Urine Specific [place] 1.005 (1.001-1.035) Urine Protein Negative (Negative) Urine Ketones Negative (Negative) Urine Blood Negative /uL (Negative) Urine Nitrite Negative (Negative) Urine Bilirubin Negative (Negative) Urine Urobilinogen Normal mg/dL (Negative) Urine Leukocyte Esterase Negative /uL (Negative) Urine RBC None seen /hpf (0 - 4) Urine Microscopic WBC < 1 /HPF (0-5) Urine Squamous Epithelial Cells Few /hpf (<5) Urine Bacteria None seen /hpf (None Seen) Urine Glucose Normal mg/dL (Normal) Total Bilirubin 0.2 mg/dL (0.2-1.0) Aspartate Amino Transferase (AST) 13 U/L (13-40) Alanine Aminotransferase (ALT) 19 U/L (7-40) Alkaline Phosphatase 82 U/L (46-116) Total Protein 7.0 g/dL (5.7-8.2) Albumin 4.4 g/dL (3.2-4.8) Other Laboratory Tests 11/25/24 05:25 Brief Hx & Hospital Course: see dictated note Condition at Discharge: Fair Final Diagnosis/Problems List right patella surgery Discharge Disposition: Home Discharge Instruct/Medications Diet: Regular Activity: See Comment Activity comment: WBAT WITH KNEE IMMOBILIZER , WALKER NEEDED USE Follow Up/Referral: fu with ortho Medications: resume home meds Discharge Statement: "Patient was advised to return to the ER or call 911 if any headaches, dizziness, shortness of breath, chest pain, abdominal pain, bleeding, fevers, or worsening of medical condition. Patient was counseled about treatment plan, medications, possible side effects, patientverbalized understanding. All questions were answered to the best of my ability. This discharge took greater then 30 minutes in planning, reviewing documentation, counseling the patient, and discussing with other team members." DME: Diagnosis: Displaced Transverse Fx of the Right Patella ASSESSMENT ASSESSMENT Assessment right patella surgery Date of Service: Nov 27, 2024 Billing Provider: ALMA DELIA BETTENCOURT MD Common Visit Codes: [id number] DISCH DAY >30min ALMA DELIA BETTENCOURT MD Nov 27, 2024 14:42
--- NOTE | 2024-11-27 15:09 | DVHDS ---
DATE OF DISCHARGE: 11/27/2024 HISTORY OF PRESENT ILLNESS: The patient is a 58-year-old lady who is admitted after she underwent surgery on the right knee for right patellar fracture. The patient has history of hypertension, hyperlipidemia, and likely bipolar disorder. HOSPITAL COURSE: The patient has done well post surgery. The patient's pain is under control. She will now be discharged once her equipment is arranged to follow up with Orthopedics and with her pain management clinic. FINAL DIAGNOSES: * Hypertension. * Anxiety/bipolar disorder. * Obesity. * Hyperlipidemia. * Right patellar fracture status post surgery. Time spent in discharge planning and review of plan with the patient and nursing was 36 minutes. MD SHYLA Nation/GARRY/ALYSSA TID: [id number] RECEIPT: [id number]
[2024-11-28 01:00] VITALS: BP 147/93; PULSE 97; RESP 19; TEMP 97.4; O2SAT 96
[2024-11-28 05:00] VITALS: BP 137/95; PULSE 84; RESP 18; TEMP 97.2; O2SAT 92
[2024-11-28 08:00] VITALS: PULSE 92; RESP 19; O2SAT 95
[2024-11-28 09:30] VITALS: BP 126/90; PULSE 98; RESP 18; TEMP 97.6; O2SAT 92
--- NOTE | 2024-11-28 12:48 | DVHPN2 ---
Progress Note Date Seen: Nov 28, 2024 Medical Necessity Reason Pt with a Central, PICC or Fol: No Subjective Patient reports: No new complaints Review of Systems: HEENT:Normal, CVS:Normal, RESPIRATORY:Normal, GI:Normal, :Normal, MSK:Normal, NEURO:Normal Objective vital signs Vital Sign Date Time Temp Pulse Resp B/P (MAP) Pulse Ox O2 Delivery O2 Flow Rate FiO2 11/28/24 09:30 97.6 98 18 126/90 (102) 92 97.6 11/28/24 08:00 Room Air* 0 21 Total Intake and Output 11/27/24 11/27/24 11/28/24 15:00 23:00 07:00 Intake Total 900 ml 500 ml Balance 900 ml 500 ml medications Current Medications Medications Dose Ordered Sig/Obdulia Route Start Time Stop Time Status Last Admin Dose Admin Nitroglycerin 0.4 mg Q5MINP PRN SL 11/22/24 08:45 Bupropion HCl 150 mg BID@07,19 PO 11/22/24 19:00 11/28/24 06:27 150 MG Lamotrigine 200 mg Q12HR PO 11/22/24 22:00 11/28/24 08:37 200 MG Montelukast Sodium 10 mg HS PO 11/22/24 22:00 11/27/24 22:32 10 MG Quetiapine Fumarate 200 mg HS PO 11/22/24 22:00 11/27/24 22:32 200 MG Morphine Sulfate 2 mg Q4HPRN PRN IV 11/22/24 14:45 11/27/24 15:55 2 MG Acetaminophen/ Hydrocodone Bitart 2 tab Q6HPRN PRN PO 11/22/24 14:00 11/28/24 08:37 2 TAB Acetaminophen 650 mg Q6HP PRN PO 11/22/24 14:00 11/25/24 21:55 650 MG Ondansetron HCl 4 mg Q6HPRN PRN IV 11/22/24 14:00 Docusate Sodium 100 mg BIDPRN PRN PO 11/26/24 10:30 11/27/24 11:19 100 MG Amlodipine Besylate 5 mg DAILY PO 11/27/24 10:00 11/28/24 08:38 5 MG Examination: GENERAL:Normal, HEENT:Normal, NECK:Normal, LUNGS:Normal, CVS:Normal, ABDOMEN:Normal, MSK:Normal, MSK:Abnormal (RIGHT KNEE BRACE), SKIN:Normal, NEURO:Normal, :Normal laboratory and microbiology Laboratory Tests 11/25/24 05:25 Test 11/25/24 05:25 Range/Units Serum Glucose 80 74-106 mg/dL Problem List/Assessment/Plan Problem List/Assessment/Plan * Hypertension for which the patient's blood pressure will be monitored. * Anxiety/bipolar disorder. The patient's home medication will be resumed. * Obesity. * Hyperlipidemia. * Right patellar fracture status post surgery for which she will be followed up by Dr. Garner. * Advance care planning, the patient is a full code- time spent 18 mins Plan discussed with: Patient My Orders My Orders Orders - ALMA DELIA BETTENCOURT MD Procedure Category Date Status Time Discharge DISCHARGE 11/27/24 Transmitted 14:41 * Box Coverer Hand CONS 11/27/24 Transmitted Consult * Box Coverer Hand CONS 11/27/24 Transmitted Consult 14:43 Dietary Evaluation Review Comments: 1) Encourage optimal PO intake 2) Refer to outpatient RD for weight management 3) Follow-up with PT and orthopedic surgeon 4) Continue to monitor I&O, labs, and skin integrity Expected Outcomes/Goals: 1) appetite and labs to improve 2) f/u in 3-5 days Date of Service: Nov 28, 2024 Billing Provider: ALMA DELIA BETTENCOURT MD Common Visit Codes: [id number] INP/OBS CARE(HIGH) ALMA DELIA BETTENCOURT MD Nov 28, 2024 12:48
[2024-11-28 13:00] VITALS: BP 150/90; PULSE 95; RESP 18; TEMP 98.3; O2SAT 91
== END 2024-11-28 15:30 | disposition home or self-care (01) | DRG 320 ==
LOC: SUR 06:05 → OVERFLOW 08:39 → CENTRAL 13:25 → WEST WING 11-27 09:00
PROVIDERS: ADMIT Internal Medicine; ATTEND Internal Medicine
PROC: 0QSD04Z Reposition Right Patella with Internal Fixation Device, Open Approach (ICD-10-PCS; principal; 2024-11-22 07:34)
DX: S82.091A Other fracture of right patella, initial encounter for closed fracture (principal); I95.9 Hypotension, unspecified; E66.9 Obesity, unspecified; F31.9 Bipolar disorder, unspecified; Z68.37 Body mass index [BMI] 37.0-37.9, adult; I10 Essential (primary) hypertension; E78.00 Pure hypercholesterolemia, unspecified; F41.9 Anxiety disorder, unspecified; Z90.49 Acquired absence of other specified parts of digestive tract; Y93.89 Activity, other specified; W18.39XA Other fall on same level, initial encounter; Y92.89 Other specified places as the place of occurrence of the external cause; Y99.8 Other external cause status
CPT/HCPCS: 36415; 73560; 76000; 80048; 80053; 81001; 85025; 97116; 97163; 97530; G0378; J0131; J1100; J1885; J2003; J2250; J2405; J2704; J3490